=== PATIENT | male | born 1935 | race Caucasian/White ===

== ENCOUNTER → 2020-04-15 11:45 | Outpatient (CLI) | payer MEDICARE, MEDICAID, SELFPAY ==
--- NOTE | ~2020-04-15 | XR_ITS ---
XR knee LT 3V DATE: 04/15/2020 12:13 INDICATION: Medial left knee pain for 2 weeks TECHNIQUE: [place], AP and crosstable lateral views COMPARISON: None FINDINGS: Diffuse osteopenia. There is mild periarticular spurring of the patella. No fracture or dislocation or joint effusion is detected. No periosteal reaction or bone destruction. No radiopaque intra-articular loose body or chondrocalcinosis. Knee joint spaces are relatively well preserved. IMPRESSION: Osteopenia Mild periarticular spurring of the patella Reviewed, dictated and finalized at location A.
== END ==
PROVIDERS: PCP Nurse Practitioner Family; Visit Provider Nurse Practitioner Family
DX: M25.562 Pain in left knee (principal); M85.862 Other specified disorders of bone density and structure, left lower leg
CPT/HCPCS: 73562

== ENCOUNTER 2021-06-08 14:16 | Outpatient (CLI) | payer MEDICARE, MEDICAID, SELFPAY | END 2021-06-08 14:17 | disposition home or self-care (01) | LOC: ANHBWCAUD 14:17 | PROVIDERS: PCP Nurse Practitioner Family; Visit Provider Nurse Practitioner Family | DX: H90.3 Sensorineural hearing loss, bilateral (principal) | CPT/HCPCS: 92557; 92567 ==

== ENCOUNTER 2021-07-11 14:58 | Emergency (ER) | payer MEDICARE, SELFPAY ==
--- NOTE | 2021-07-11 15:09 | ED.CHESTPAIN ---
HPI - Chest Pain General Chief Complaint: Chest Pain Stated Complaint: chest pain Time Seen by Provider: 07/11/21 15:09 Source: patient and RN notes reviewed Mode of arrival: ambulatory Limitations: no limitations History of Present Illness HPI narrative: 86-year-old male presents to the ER with complaints of left-sided chest pain that is been getting worse over the last couple of days. Also reports dizziness and feeling lightheaded and increased wobbliness on his feet. Patient states he noticed a discomfort in the left chest with occasional radiation down the left arm 2 to 3 days ago when he started lety. Associated with dizziness and lightheadedness. Patient states he felt like he was fall. Patient denies any cardiac issues. Recently diagnosed with Paget's disease. States he does have some edema but over the last 2 days it is increased. States that he got dizzy yesterday and fell, patient denies and states that he just stumbled. Related Data Home Medications Medication Instructions Recorded Confirmed bupropion HCl 150 mg PO BID 07/11/21 07/11/21 Allergies Allergy/AdvReac Type Severity Reaction Status Date / Time Penicillins Allergy Unknown Verified 07/05/15 12:28 Review of Systems Constitutional: Constitutional: Reports no additional constitutional complaints, Denies chills and Denies fever(s) Eyes: Eyes: Reports no additional eye complaints ENT: Reports system reviewed and no additional complaints, except as documented Cardiovascular: Cardiovascular: Reports chest pain (Left-sided down left arm), Reports leg edema, Reports lightheadedness, Denies dyspnea and Reports dyspnea on exertion Respiratory: Respiratory: Reports no additional respiratory complaints, Denies cough and Denies dyspnea Gastrointestinal: Gastrointestinal: Reports no additional gastrointestinal complaints, Denies abdominal pain and Denies nausea Musculoskeletal: Musculoskeletal: Reports no additional musculoskeletal complaints Integumentary/Breasts: Skin/Breast: Reports system reviewed and no additional complaints, except as docu Neurologic: Reports as per HPI, Reports dizziness, Denies focal weakness and Reports weakness Psychiatric: Psychiatric: Reports no additional psychiatric complaints Allergic/Immunologic: Allergic/Immunologic: Reports no additional allergic/immunologic complaints [facility] Past Medical History Medical History (Updated 07/11/21 @ 15:28 by Ale Johnson) Paget disease of bone Social History Social History (Updated 07/11/21 @ 15:29 by Ale Johnson) Substance use: never Living arrangements: with family Occupation/Education: retired Gender identity (if verbalized by the patient): Male Comments At the time of my signature, I reviewed and agree with the nursing past medical, surgical, social, and family history. There is no relevant family history pertinent to the patient complaint. Exam Const: General: no acute distress, alert and ill appearing chronically Nutritional Appearance: obese Orientation/consciousness: patient oriented x3 HENMT: Head: normal to inspection Eyes: Pupils: Equal, round and reactive pupils present Neck: Neck: normal visual inspection, no lymphadenopathy and no meningeal signs Chest: Chest palpation & inspection: normal inspection of the chest Resp: Effort & Inspection: normal respiratory effort Auscultation: diminished lung sounds bilateral in the lower lung tatum Cardio: Rate: regular rate Rhythm: regular rhythm GI: GI Palp: Yes Soft to palpation and No Tenderness to palpation present (GI) Back/Spine/Pelvis: Back: no CVA tenderness Skin: General skin exam: normal color Rashes: no rashes Wounds: no wounds Neuro: General: patient oriented x3, moves all extremities, no meningeal signs and no focal motor deficits Cranial nerves: Yes Nystagmus not present Speech: normal speech Gait exam (Neuro): gait abnormal (Shuffled gait) Extrem: General: edema b
[2021-07-11 15:10] VITALS: BP 162/82; PULSE 67; RESP 18; TEMP 36.6; O2SAT 97
--- NOTE | 2021-07-11 15:13 | ECG_ITS ---
Measurements Intervals [place] Rate: 67 P: 11 OR: 313 QRS: 2 QRSD: 139 T: 27 QT: 423 QTc: 448 Interpretive Statements SINUS RHYTHM WITH MARKED FIRST DEGREE AV BLOCK VENTRICULAR PREMATURE COMPLEX RIGHT BUNDLE BRANCH BLOCK ABNORMAL ECG Electronically Signed On 07-11-2021 19:20:29 CDT by Wisam Deluca D.O.
[2021-07-11] MEDS: ASPIRIN 81 MG CHEWABLE TABLET 324 MG PO (15:14)
== END 2021-07-11 15:20 | disposition short-term general hospital (02) ==
PROVIDERS: Emergency Provider Nurse Practitioner; PCP Nurse Practitioner Family
DX: R07.9 Chest pain, unspecified (principal)
CPT/HCPCS: 93005; 99215; A9270; G0463

== ENCOUNTER 2021-07-23 09:08 | Outpatient (RCR) | payer MEDICAID, SELFPAY | END 2021-10-21 23:59 | disposition home or self-care (01) | LOC: ANHBWCAUD 09:08 | PROVIDERS: PCP Nurse Practitioner Family; Visit Provider Nurse Practitioner Family | DX: Z46.1 Encounter for fitting and adjustment of hearing aid (principal) | CPT/HCPCS: V5160; V5261 ==

== ENCOUNTER 2022-02-18 10:00 | Outpatient (RCR) | payer MEDICARE, MEDICAID, SELFPAY | END 2022-03-10 23:59 | disposition home or self-care (01) | LOC: ANHBWCAUD 10:00 | PROVIDERS: PCP Nurse Practitioner Family; Visit Provider Nurse Practitioner Family | DX: Z46.1 Encounter for fitting and adjustment of hearing aid (principal) | CPT/HCPCS: 99199 ==

== ENCOUNTER 2022-05-31 08:57 | Outpatient (RCR) | payer MEDICARE, MEDICAID, SELFPAY | END 2022-08-29 23:59 | disposition home or self-care (01) | LOC: ANHBWCAUD 08:57 | PROVIDERS: PCP Nurse Practitioner Family; Visit Provider Nurse Practitioner Family | DX: Z46.1 Encounter for fitting and adjustment of hearing aid (principal) | CPT/HCPCS: 99199 ==

== ENCOUNTER 2024-01-23 08:30 | Outpatient (RCR) | payer MEDICARE, SELFPAY | END 2024-02-12 23:59 | disposition home or self-care (01) | LOC: ANHBWCAUD 08:30 | PROVIDERS: PCP Nurse Practitioner Family; Visit Provider Nurse Practitioner Family | DX: Z46.1 Encounter for fitting and adjustment of hearing aid (principal) | CPT/HCPCS: 99199 ==